=== PATIENT | male | born 1945 | race Caucasian/White ===

== ENCOUNTER → 2017-03-03 | Outpatient (CLI) | payer MEDICARE ==
--- NOTE | 2017-03-03 08:34 | US ---
EXAMINATION TYPE: US duplex aorta DATE OF EXAM: 03/03/2017 COMPARISON: NONE CLINICAL HISTORY: I50.9 chronic heart failure. AAA screening EXAM MEASUREMENTS: Abdominal Aorta: Proximal: 2.3 x 2.3cm Mid: 2.3 x 2.2cm Distal: 2.1 x 2.2cm Right Iliac: 1.2 x 1.3cm Left Iliac: 1.2 x 1.4cm Visualized portions of aorta and Iliacs appear wnl, no AAA seen at this time, portions of proximal an d distal aorta partially obscured by overlying midline bowel gas. IMPRESSION: No evidence of AAA
--- NOTE | 2017-03-03 09:08 | US ---
EXAMINATION TYPE: US prostate transrectal DATE OF EXAM: 03/03/2017 COMPARISON: NONE CLINICAL HISTORY: R97.20 elevated PSA level. Elevated PSA, difficult urination This examination was performed using the transrectal probe. EXAM MEASUREMENTS: Gland Size: 5.9 x 5.3 x 6.4cm Volume: 104.7ml Predicted PSA: 12.6 Actual PSA (if available): 4.54 Enlarged heterogeneous gland with multiple calcifications throughout and multiple cystic areas throug hout central zone with largest measuring 0.8cm. IMPRESSION: Prostate enlargement without suspicious lesion. Predicted PSA = volume x 0.12 ng/ml Calculated Volume = 0.5236 x L x W x H
== END | disposition home or self-care (01) ==
LOC: RADUSMAIN 07:48
PROVIDERS: ATTEND Family Medicine
DX: Z13.6 Encounter for screening for cardiovascular disorders (principal); N40.0 Benign prostatic hyperplasia without lower urinary tract symptoms; I50.9 Heart failure, unspecified
CPT/HCPCS: 76872; 93979

== ENCOUNTER 2019-07-27 08:36 | Emergency (ER) | payer MEDICARE ==
[2019-07-27] MEDS ORDERED: KETOROLAC 30 MG/ML 1 ML VIAL IVP STA (09:15)
[2019-07-27] MEDS ORDERED: ONDANSETRON ODT 8 MG TAB.RAPDIS PO STA (09:15)
[2019-07-27] MEDS ORDERED: SODIUM CHLORIDE 0.9% 2,000 ML IV STA (09:15)
[2019-07-27] MEDS ORDERED: SODIUM CHLORIDE 0.9% 1,000 ML IV STA (09:15)
[2019-07-27] MEDS ORDERED: MORPHINE SULFATE 4 MG/ML SYRINGE IV STA (09:15)
--- NOTE | 2019-07-27 09:19 | ED ---
Abdominal Pain HPI - General Chief Complaint: Abdominal Pain Stated Complaint: poss kidney stones Time Seen by Provider: 07/27/19 08:55 Source: patient, RN notes reviewed, old records reviewed Mode of arrival: ambulatory Limitations: no limitations - History of Present Illness Initial Comments: This patient's a 74-year-old male, and he presents emergency department today with 2 days of right-sided flank pain. Patient reports that he believes he is suffering from kidney stones. Patient states that he's noticed no significant hematuria to his urine. Patient reports that the symptoms started after he came home from the gym. He initially thought he pulled something. He states though he had persistent pain, I does complain of some nausea. Patient reports that he is had a cholecystectomy in the past. Denies any specific fevers or chills. Patient reports he's had some urinary hesitancy. He doesn't history of enlarged prostate disorder but reports that this seems worse than usual. - Related Data Home Medications Medication Instructions Recorded Confirmed HYDROcodone/APAP 7.5-325MG [[place] 1 tab PO Q6HR PRN 12/23/14 11/04/15 7.5-325] Omeprazole [PriLOSEC] 20 mg PO AC-BID PRN 12/23/14 11/04/15 Psyllium Husk 100% [Metamucil 6 gm PO DAILY 12/23/14 11/04/15 Packet] Previous Rx's Medication Instructions Recorded Aspirin 325 mg PO BID #60 tab 08/19/15 Docusate [Colace] 100 mg PO DAILY #30 capsule 08/19/15 HYDROcodone/APAP 7.5-325MG [[place] 1 - 2 each PO Q6HR PRN #60 tab 08/19/15 7.5] traMADol HCl [Ultram] 50 mg PO Q6H PRN #40 tab 08/19/15 Cephalexin [Keflex] 500 mg PO Q6HR #40 cap 11/04/15 Cyclobenzaprine [Flexeril] 10 mg PO TID #12 tab 07/27/19 Ibuprofen 600 mg PO TID #12 tablet 07/27/19 Allergies Allergy/AdvReac Type Severity Reaction Status Date / Time influenza virus vaccine, Allergy Swelling Verified 07/27/19 08:44 specific IN THROAT [influenza virus vacc,specific] lactose Allergy Diarrhea Verified 10/25/19 08:44 Review of Systems ROS Statement: Those systems with pertinent positive or pertinent negative responses have been documented in the HPI. ROS Other: All systems not noted in ROS Statement are negative. Past Medical History Past Medical History: GERD/Reflux, Osteoarthritis (OA) Additional Past Medical History / Comment(s): KIDNEY STONE PASSED. SCALEY SPOT AT RT NONDENOMINATIONAL. NUMBNESS IN LT OUTER FOOT SINCE SURG 12/2014. History of Any Multi-Drug Resistant Organisms: None Reported Past Surgical History: Cholecystectomy, Orthopedic Surgery Additional Past Surgical History / Comment(s): RIGHT AND LEFT KNEE ARTHROSCOPIC- SEVERAL, RHINOPLASTY CATARACT SURGERY, Past Anesthesia/Blood Transfusion Reactions: No Reported Reaction Past Psychological History: No Psychological Hx Reported Smoking Status: Never smoker Past Alcohol Use History: None Reported Past Drug Use History: None Reported - Past Family History Father Additional Family Medical History / Comment(s): PARKINSONS, ULCERS Mother Family Medical History: COPD Additional Family Medical History / Comment(s): EMPHYSEMA General Exam - General Exam Comments Initial Comments: 74-year-old male. Pleasant. Patient appears in no significant distress. Resting comfortably in bed. General: Well appearing, well nourished, in no distress. Oriented x 3, normal mood and affect . Ambulating without difficulty. Skin: Good turgor, no rash, unusual bruising or prominent lesions Hair: Normal texture and distribution. HEENT: Head: Normocephalic, atraumatic, no visible or palpable masses, dep ressions, or scaring. Mouth: Mucous membranes moist, no mucosal lesions. Neck: Supple, without lesions, bruits, or adenopathy, thyroid non-enlarged and non-tender Heart: No cardiomegaly or thrills; regular rate and rhythm, no murmur or gallop Lungs: Clear to auscultation and percussion Abdomen: Bowel sounds normal, no tenderness, organomegaly, masses, or hernia Back: Spine normal without deformity. R cva tenderness Extremities: No amputations or deformities, cyanosis, edema or varicosities, peripheral pulses intact Musculoskeletal: Normal gait and station. No misalignment, asymmetry, cre pitation, defects, tenderness, masses, effusions, decreased range of motion, instability, atrophy or abnormal strength or tone in the head, neck, spine, ribs, pelvis or extremities. Neurologic: CN 2-12 normal. Sensation to pain, touch, and proprioception normal. DTRs normal in upper and lower extremities. No pathologic reflexes. Psychiatric: Oriented X3, intact recent and remote memory, judgment and insight, normal mood and affect. Limitations: no limitations Course Vital Signs 07/27/19 07/27/19 08:41 12:40 Temperature 97.8 F 98.4 F Pulse Rate 71 77 Respiratory 18 16 Rate Blood Pressure 163/103 148/99 O2 Sat by Pulse 97 98 Oximetry Medical Decision Making - Medical Decision Making 74-year-old male comes in today for evaluation for right-sided flank pain for last 2 days. He also complains some urinary urgency, and states he is concerned immediately doing of kidney stones. At this time Patient was given IV fluids labwork obtained. Laboratory was unremarkable. She is to have pain. Patient had a CT scan of his abdomen pelvis without contrast looking for stones or any other, gait doctors and is no evidence of any acute abdominal process noted. Patient will be discharged at this time with follow-up with PCP. . - Lab Data Result diagrams: 07/27/19 08:59 07/27/19 08:59 Lab Results 07/27/19 07/27/19 07/27/19 Range/Units 08:59 08:59 08:59 WBC 4.6 (3.8-10.6) k/uL RBC 5.35 (4.30-5.90) m/uL Hgb 16.1 (13.0-17.5) gm/dL Hct 48.5 (39.0-53.0) % MCV 90.6 (80.0-100.0) fL MCH 30.1 (25.0-35.0) pg MCHC 33.2 (31.0-37.0) g/dL RDW 13.2 (11.5-15.5) % Plt Count 178 (150-450) k/uL Neutrophils % 67 % Lymphocytes % 17 % Monocytes % 8 % Eosinophils % 4 % Basophils % 2 % Neutrophils # 3.1 (1.3-7.7) k/uL Lymphocytes # 0.8 L (1.0-4.8) k/uL Monocytes # 0.4 (0-1.0) k/uL Eosinophils # 0.2 (0-0.7) k/uL Basophils # 0.1 (0-0.2) k/uL PT 10.3 (9.0-12.0) sec INR 1.0 (<1.2) APTT 26.1 (22.0-30.0) sec Sodium 141 (137-145) mmol/L Potassium 4.4 (3.5-5.1) mmol/L Chloride 106 (98-107) mmol/L Carbon Dioxide 26 (22-30) mmol/L Anion Gap 9 mmol/L BUN 19 (9-20) mg/dL Creatinine 1.03 (0.66-1.25) mg/dL Est GFR (CKD-EPI)AfAm 83 (>60 ml/min/1.73 sqM) Est GFR (CKD-EPI)NonAf 72 (>60 ml/min/1.73 sqM) Glucose 92 (74-99) mg/dL Calcium 9.6 (8.4-10.2) mg/dL Total Bilirubin 1.3 (0.2-1.3) mg/dL AST 21 (17-59) U/L ALT 17 L (21-72) U/L Alkaline Phosphatase 69 (38-126) U/L Total Protein 7.3 (6.3-8.2) g/dL Albumin 4.2 (3.5-5.0) g/dL Amylase 55 (30-110) U/L Lipase 76 (23-300) U/L Urine Color Urine Appearance (Clear) Urine pH (5.0-8.0) Ur Specific [place] (1.001-1.035) Urine Protein (Negative) Urine Glucose (UA) (Negative) Urine Ketones (Negative) Urine Blood (Negative) Urine Nitrite (Negative) Urine Bilirubin (Negative) Urine Urobilinogen (<2.0) mg/dL Ur Leukocyte Esterase (Negative) 07/27/19 Range/Units 08:59 WBC (3.8-10.6) k/uL RBC (4.30-5.90) m/uL Hgb (13.0-17.5) gm/dL Hct (39.0-53.0) % MCV (80.0-100.0) fL MCH (25.0-35.0) pg MCHC (31.0-37.0) g/dL RDW (11.5-15.5) % Plt Count (150-450) k/uL Neutrophils % % Lymphocytes % % Monocytes % % Eosinophils % % Basophils % % Neutrophils # (1.3-7.7) k/uL Lymphocytes # (1.0-4.8) k/uL Monocytes # (0-1.0) k/uL Eosinophils # (0-0.7) k/uL Basophils # (0-0.2) k/uL PT (9.0-12.0) sec INR (<1.2) APTT (22.0-30.0) sec Sodium (137-145) mmol/L Potassium (3.5-5.1) mmol/L Chloride (98-107) mmol/L Carbon Dioxide (22-30) mmol/L Anion Gap mmol/L BUN (9-20) mg/dL Creatinine (0.66-1.25) mg/dL Est GFR (CKD-EPI)AfAm (>60 ml/min/1.73 sqM) Est GFR (CKD-EPI)NonAf (>60 ml/min/1.73 sqM) Glucose (74-99) mg/dL Calcium (8.4-10.2) mg/dL Total Bilirubin (0.2-1.3) mg/dL AST (17-59) U/L ALT (21-72) U/L Alkaline Phosphatase (38-126) U/L Total Protein (6.3-8.2) g/dL Albumin (3.5-5.0) g/dL Amylase (30-110) U/L Lipase (23-300) U/L Urine Color Yellow Urine Appearance Clear (Clear) Urine pH 5.5 (5.0-8.0) Ur Specific [place] 1.026 (1.001-1.035) Urine Protein Trace H (Negative) Urine Glucose (UA) Negative (Negative) Urine Ketones Negative (Negative) Urine Blood Negative (Negative) Urine Nitrite Negative (Negative) Urine Bilirubin Negative (Negative) Urine Urobilinogen <2.0 (<2.0) mg/dL Ur Leukocyte Esterase Negative (Negative) - Radiology Data Radiology results: report reviewed CT shows prostate enlargement. No evidence of hydronephrosis or nephrolithiasis. Degenerative changes within lumbar spine. Probable bilateral simple renal cysts. Disposition Clinical Impression: DDD (degenerative disc disease), lumbar, Back pain Disposition: HOME SELF-CARE Condition: Good Instructions (If sedation given, give patient instructions): Low Back Strain (ED) Additional Instructions: Patient advised to take anti-inflammatory medicine muscle actions as prescribed. Follow-up with your primary care physician. Prescriptions: Cyclobenzaprine [Flexeril] 10 mg PO TID #12 tab Ibuprofen 600 mg PO TID #12 tablet Is patient prescribed a controlled substance at d/c from ED?: No Referrals: Chris Galindo MD [Primary Care Provider] - 1-2 days Time of Disposition: 12:08
[2019-07-27] MEDS ORDERED: ONDANSETRON 4 MG/2 ML VIAL IVP STA (09:20)
[2019-07-27 09:36] LABS: Appearance,Urine Clear (Clear); Basophils # (A) 0.1 k/uL (0-0.2); Basophils % (A) 2 %; Bilirubin,Urine Negative (Negative); Blood,Urine Negative (Negative); Color,Urine Yellow; Eosinophils # (A) 0.2 k/uL (0-0.7); Eosinophils % (A) 4 %; Glucose,Urine (UA) Negative (Negative); HCT 48.5 % (39.0-53.0); HGB 16.1 gm/dL (13.0-17.5); Ketones,Urine Negative (Negative); Leukocyte Esterase,Urine Negative (Negative); Lymphocytes # (A) 0.8 k/uL (1.0-4.8); Lymphocytes % (A) 17 %; MCH 30.1 pg (25.0-35.0); MCHC 33.2 g/dL (31.0-37.0); MCV 90.6 fL (80.0-100.0); Monocytes # (A) 0.4 k/uL (0-1.0); Monocytes % (A) 8 %; Neutrophils # (A) 3.1 k/uL (1.3-7.7); Neutrophils % (A) 67 %; Nitrite,Urine Negative (Negative); PH, Urine 5.5 (5.0-8.0); Platelet Count 178 k/uL (150-450); Protein,Urine Trace (Negative); RBC 5.35 m/uL (4.30-5.90); RDW 13.2 % (11.5-15.5); Specific Gravity,Urine 1.026 (1.001-1.035); Urobilinogen,Urine <2.0 mg/dL (<2.0); WBC 4.6 k/uL (3.8-10.6)
[2019-07-27 09:44] LABS: Partial Thromboplastin Time 26.1 sec (22.0-30.0); Prothrombin Time 10.3 sec (9.0-12.0)
[2019-07-27 09:58] LABS: Albumin 4.2 g/dL (3.5-5.0); Calcium 9.6 mg/dL (8.4-10.2); Potassium 4.4 mmol/L (3.5-5.1); Total Bilirubin 1.3 mg/dL (0.2-1.3); Total Protein 7.3 g/dL (6.3-8.2)
--- NOTE | 2019-07-27 10:01 | XR ---
EXAMINATION TYPE: XR KUB DATE OF EXAM: 07/27/2019 9:48 AM CLINICAL HISTORY: Right flank and back pain. History of kidney stones TECHNIQUE: Two Upright KUB images of the abdomen are obtained. COMPARISON: CT 2014. FINDINGS: Scattered gas is seen in non-distended small bowel loops. Gas and fecal material is seen in non-distended colon. . Scattered air-fluid levels are nonspecific upper to mid central abdomen. Chol ecystectomy clips are redemonstrated. Lung bases are clear. Multilevel spurring in the spine is prese nt. No definitive nephrolithiasis. IMPRESSION: Overall nonspecific but felt to be nonobstructive bowel gas pattern. Small bilateral renal calculi in 2014 CT not clearly seen on plain films.
--- NOTE | 2019-07-27 11:19 | CT ---
EXAMINATION TYPE: CT abdomen pelvis wo con DATE OF EXAM: 07/27/2019 COMPARISON: 11/27/2013 HISTORY: Rt lateral abd pain CT DLP: 629.6 mGycm Examination of the solid and hollow viscera is limited given the lack of contrast. FINDINGS: LUNG BASES: No evidence for nodule. No evidence for infiltrate. Right basilar atelectasis and/or pare nchymal scarring. LIVER/GB: The gallbladder is surgically absent. No space-occupying hepatic lesion. PANCREAS: No pancreatic mass identified. No inflammatory process seen. SPLEEN: No evidence for splenomegaly. No intrasplenic lesions seen. ADRENALS: No adrenal nodules identified. No evidence for thickening. KIDNEYS: Hypoattenuating lesions of the kidneys may reflect small cysts. No definitive solid lesions seen. No nephrolithiasis. No hydronephrosis. BOWEL: Appendix has a normal appearance. No evidence of bowel obstruction. No inflammatory process. Lymph nodes: No evidence for adenopathy greater than 1 cm. Abdominal aorta: Atheromatous changes seen. No evidence for aneurysm. Genital organs: Marked prostate gland enlargement. Other: Severe degenerative change lumbar spine. IMPRESSION: 1. Marked prostate gland enlargement. 2. No evidence for hydronephrosis or nephrolithiasis. Probable of bilateral simple renal cysts.
[2019-07-27 12:40] VITALS: BP 148/99; PULSE 77; RESP 16; TEMP 98.4
== END 2019-07-27 12:40 | disposition home or self-care (01) ==
LOC: EC 08:36
DX: M51.36 Other intervertebral disc degeneration, lumbar region (principal); R39.15 Urgency of urination; K21.9 Gastro-esophageal reflux disease without esophagitis; Z91.011 Allergy to milk products; Z88.7 Allergy status to serum and vaccine; Z90.49 Acquired absence of other specified parts of digestive tract
CPT/HCPCS: 36415; 80053; 82150; 83690; 85025; 85610; 85730; 81003; 74018; 74176; 99285; 96374; 96375; 96361 ×3; J2270; J2405

== ENCOUNTER → 2019-10-05 | Outpatient (CLI) | payer MEDICARE ==
--- NOTE | 2019-10-05 23:15 | CT ---
EXAMINATION TYPE: CT knee LT wo con DATE OF EXAM: 10/05/2019 COMPARISON: None HISTORY: Patient complains of left knee numbness. Possible bone spur. CT DLP: 423 mGycm Automated exposure control for dose reduction was used. FINDINGS: Muscular signal is normal. No suspicious soft tissue abnormality is evident. Tibial and femoral components are present. No acute fractures are evident. There is some calcificatio n along the medial distal femur could be related to some calcified tendinosis. Three-D reconstructed images were performed. Beam hardening artifact limits this evaluation however. IMPRESSION: 1. NO OBVIOUS BONE SPURS ARE EVIDENT. 2. THERE MAY BE SOME CALCIFIED TENDINOSIS LONG THE MEDIAL COLLATERAL LIGAMENT PROXIMALLY
== END | disposition home or self-care (01) ==
LOC: RADCTMAIN 13:37
PROVIDERS: ATTEND Orthopaedic Surgery
DX: M25.562 Pain in left knee (principal); Z96.652 Presence of left artificial knee joint

== ENCOUNTER 2019-11-17 09:17 | Emergency (ER) | payer MEDICARE ==
[2019-11-17 09:22] VITALS: RESP 18
--- NOTE | 2019-11-17 09:43 | ED ---
URI HPI - General Chief Complaint: Upper Respiratory Infection Stated Complaint: Cough Time Seen by Provider: 11/17/19 09:25 Source: patient, RN notes reviewed Mode of arrival: ambulatory Limitations: no limitations - History of Present Illness Initial Comments: This a 74-year-old male presents emergency Department with chief complaint of cough, shortness of breath. Patient states she's been sick last week states it initially started with sore throat, nasal congestion. He states he now has a productive cough. Patient denies any fevers the pain was states she's had intermittent fevers recently. Denies any exposures to influenza. Patient denies any current chest pain, headache, dizziness. He has been taking [id number] cough and cold medications which has helped somewhat. Denies any history of COPD or CHF or asthma - Related Data Home Medications Medication Instructions Recorded Confirmed HYDROcodone/APAP 7.5-325MG [[place] 1 tab PO Q6HR PRN 12/23/14 11/04/15 7.5-325] Omeprazole [PriLOSEC] 20 mg PO AC-BID PRN 12/23/14 11/04/15 Psyllium Husk 100% [Metamucil 6 gm PO DAILY 12/23/14 11/04/15 Packet] Previous Rx's Medication Instructions Recorded Aspirin 325 mg PO BID #60 tab 08/19/15 Docusate [Colace] 100 mg PO DAILY #30 capsule 08/19/15 HYDROcodone/APAP 7.5-325MG [[place] 1 - 2 each PO Q6HR PRN #60 tab 08/19/15 7.5] traMADol HCl [Ultram] 50 mg PO Q6H PRN #40 tab 08/19/15 Cephalexin [Keflex] 500 mg PO Q6HR #40 cap 11/04/15 Cyclobenzaprine [Flexeril] 10 mg PO TID #12 tab 07/27/19 Ibuprofen 600 mg PO TID #12 tablet 07/27/19 Azithromycin [Zithromax Z-pack] 0 mg PO DIRECTED #1 pack 11/17/19 Allergies Allergy/AdvReac Type Severity Reaction Status Date / Time influenza virus vaccine, Allergy Swelling Verified 11/17/19 09:22 specific IN THROAT [influenza virus vacc,specific] lactose Allergy Diarrhea Verified 11/17/19 09:22 Review of Systems ROS Statement: Those systems with pertinent positive or pertinent negative responses have been documented in the HPI. ROS Other: All systems not noted in ROS Statement are negative. Past Medical History Past Medical History: GERD/Reflux, Osteoarthritis (OA) Additional Past Medical History / Comment(s): KIDNEY STONE PASSED. SCALEY SPOT AT RT HOLINESS. NUMBNESS IN LT OUTER FOOT SINCE SURG 12/2014. History of Any Multi-Drug Resistant Organisms: None Reported Past Surgical History: Cholecystectomy, Orthopedic Surgery Additional Past Surgical History / Comment(s): RIGHT AND LEFT KNEE ARTHROSCOPIC- SEVERAL, RHINOPLASTY CATARACT SURGERY, Past Anesthesia/Blood Transfusion Reactions: No Reported Reaction Past Psychological History: No Psychological Hx Reported Smoking Status: Never smoker Past Alcohol Use History: None Reported Past Drug Use History: None Reported - Past Family History Father Additional Family Medical History / Comment(s): PARKINSONS, ULCERS Mother Family Medical History: COPD Additional Family Medical History / Comment(s): EMPHYSEMA General Exam Limitations: no limitations General appearance: alert, in no apparent distress Head exam: Present: atraumatic, normocephalic, normal inspection Eye exam: Present: normal appearance, PERRL, EOMI. Absent: scleral icterus, conjunctival injection, periorbital swelling Neck exam: Present: full ROM Respiratory exam: Present: rhonchi (Right greater than left). Absent: normal lung sounds bilaterally, respiratory distress, wheezes, rales, stridor Cardiovascular Exam: Present: regular rate, normal rhythm, normal heart sounds. Absent: systolic murmur, diastolic murmur, rubs, gallop, clicks Neurological exam: Present: alert, oriented X3, CN II-XII intact Skin exam: Present: warm, dry, intact, normal color. Absent: rash Course Vital Signs 11/17/19 09:17 Temperature 98 F Pulse Rate 93 Respiratory 18 Rate Blood Pressure 141/102 O2 Sat by Pulse 96 Oximetry Medical Decision Making - Medical Decision Making Chest x-ray does not show any definite evidence of pneumonia though there may be some early infiltrate in the right lower. Patient be treated with azithromycin at this time he'll follow-up with his primary care physician and return for worsening symptoms. Disposition Clinical Impression: Bronchitis Disposition: HOME SELF-CARE Condition: Stable Instructions (If sedation given, give patient instructions): Upper Respiratory Infection (ED) Additional Instructions: Please return to the Emergency Department if symptoms worsen or any other concerns. Prescriptions: Azithromycin [Zithromax Z-pack] 0 mg PO DIRECTED #1 pack Is patient prescribed a controlled substance at d/c from ED?: No Referrals: Chris Galindo MD [Primary Care Provider] - 1-2 days Time of Disposition: 10:35
--- NOTE | 2019-11-17 10:27 | XR ---
EXAMINATION TYPE: XR chest 2V DATE OF EXAM: 11/17/2019 HISTORY: cough. REFERENCE: Previous study dated 03/31/2013. FINDINGS: Lung volumes are prominent. There is scarring or atelectasis at the left lung base. Lungs o therwise clear. Pleural space are clear. The heart is not enlarged. IMPRESSION: 1. COPD. 2. SCARRING VERSUS ATELECTASIS, LEFT LUNG BASE.
[2019-11-17] MEDS ORDERED: cefTRIAXone 1,000 MG VIAL (IM USE) IM STA (10:35)
[2019-11-17 10:46] VITALS: BP 116/85; PULSE 75; TEMP 98.4
== END 2019-11-17 10:44 | disposition home or self-care (01) ==
LOC: EC 09:17
DX: J40 Bronchitis, not specified as acute or chronic (principal); K21.9 Gastro-esophageal reflux disease without esophagitis; Z88.7 Allergy status to serum and vaccine; Z91.018 Allergy to other foods; Z79.899 Other long term (current) drug therapy; Z82.5 Family history of asthma and other chronic lower respiratory diseases
CPT/HCPCS: 71046; 99284; 96372; J0696

== ENCOUNTER → 2020-12-30 | Outpatient (CLI) | payer MEDICARE ==
--- NOTE | 2020-12-30 16:55 | XR ---
EXAMINATION TYPE: XR lumbar spine 2 or 3V DATE OF EXAM: 12/30/2020 COMPARISON: NONE HISTORY: Numbness TECHNIQUE: 3 views FINDINGS: Lumbar vertebra have normal alignment. There is disc space narrowing at L3-4 and L4-5 with spur formation. There is no compression fracture. The sacroiliac joints are intact. IMPRESSION: Spondylotic changes mainly at L3-4 L4-5. No fracture seen. No change compared to CT scan of the abdomen on 07/27/2019.
== END | disposition home or self-care (01) ==
LOC: RADXRMAIN 15:41
PROVIDERS: ATTEND Internal Medicine Geriatric Medicine
DX: M47.816 Spondylosis without myelopathy or radiculopathy, lumbar region (principal)
CPT/HCPCS: 72100

== ENCOUNTER 2021-05-17 06:16 | Emergency (ER) | payer MEDICARE ==
[2021-05-17 06:23] VITALS: TEMP 97.6
[2021-05-17 06:55] LABS: Appearance,Urine Clear (Clear); Bilirubin,Urine Negative (Negative); Blood,Urine Negative (Negative); Color,Urine Light Yellow; Glucose,Urine (UA) Negative (Negative); Ketones,Urine Negative (Negative); Leukocyte Esterase,Urine Negative (Negative); Nitrite,Urine Negative (Negative); PH, Urine 5.5 (5.0-8.0); Protein,Urine Negative (Negative); Specific Gravity,Urine 1.011 (1.001-1.035); Urobilinogen,Urine <2.0 mg/dL (<2.0)
--- NOTE | 2021-05-17 07:24 | XR ---
EXAMINATION TYPE: XR KUB DATE OF EXAM: 05/17/2021 COMPARISON: CT abdomen pelvis 07/27/2019 HISTORY: 76 years Male. STUDY INDICATION GIVEN: Constipation . TECHNIQUE: 2 views of the abdomen FINDINGS AND IMPRESSION: Large amount of stool seen in the abdomen. No evidence for intestinal obstruction. No evidence for free abdominal air. Cholecystectomy clips noted. Subsegmental atelectasis seen in the lung bases. The heart is normal in size. Aorta appears ectatic. Degenerative changes seen in the spine and bilateral hip joints. Phleboliths are noted in the pelvis.
[2021-05-17] MEDS ORDERED: MAGNESIUM CITRATE 296 ML BOTTLE PO ONE (07:31)
--- NOTE | 2021-05-17 07:32 | ED ---
Male Urogenital HPI - General Chief complaint: Urogenital Stated complaint: unable to urinate Time Seen by Provider: 05/17/21 06:25 Source: patient, family, RN notes reviewed Mode of arrival: ambulatory Limitations: no limitations - History of Present Illness Initial comments: This is a 76-year-old male presents emergency Department with chief complaint unable to urinate. Patient states that he had issues with his prostate in which she's been taking Flomax states she's gradually had worsening symptoms. Is unable to get any urine out last night. Patient states he feels pressure in his lower abdomen. Patient also states is very constipated he states he passed gas and minimal stool this morning. He states he had a straining really hard noticed small amount bleeding from hemorrhoids. Patient offers no other complaints. - Related Data Home Medications Medication Instructions Recorded Confirmed HYDROcodone/APAP 7.5-325MG [[place] 1 tab PO Q6HR PRN 12/23/14 11/04/15 7.5-325] Omeprazole [PriLOSEC] 20 mg PO AC-BID PRN 12/23/14 11/04/15 Psyllium Hus[place] 100% [Metamucil 6 gm PO DAILY 12/23/14 11/04/15 Packet] Previous Rx's Medication Instructions Recorded Aspirin 325 mg PO BID #60 tab 08/19/15 Docusate [Colace] 100 mg PO DAILY #30 capsule 08/19/15 HYDROcodone/APAP 7.5-325MG [[place] 1 - 2 each PO Q6HR PRN #60 tab 08/19/15 7.5] traMADol HCl [Ultram] 50 mg PO Q6H PRN #40 tab 08/19/15 Cephalexin [Keflex] 500 mg PO Q6HR #40 cap 11/04/15 Cyclobenzaprine [Flexeril] 10 mg PO TID #12 tab 07/27/19 Ibuprofen 600 mg PO TID #12 tablet 07/27/19 Azithromycin [Zithromax Z-pack (6 0 mg PO DIRECTED #1 pack 11/17/19 tabs)] Allergies Allergy/AdvReac Type Severity Reaction Status Date / Time influenza virus vaccine, Allergy Swelling Verified 05/17/21 06:23 specific IN THROAT [influenza virus vacc,specific] lactose Allergy Diarrhea Verified 05/17/21 06:23 Review of Systems ROS Statement: Those systems with pertinent positive or pertinent negative responses have been documented in the HPI. ROS Other: All systems not noted in ROS Statement are negative. Past Medical History Past Medical History: GERD/Reflux, Osteoarthritis (OA), Prostate Disorder Additional Past Medical History / Comment(s): KIDNEY STONE PASSED. SCALEY SPOT AT RT [place]. NUMBNESS IN LT OUTER FOOT SINCE SURG 12/2014. History of Any Multi-Drug Resistant Organisms: None Reported Past Surgical History: Cholecystectomy, Orthopedic Surgery Additional Past Surgical History / Comment(s): RIGHT AND LEFT KNEE ARTHROSCOPIC- SEVERAL, RHINOPLASTY CATARACT SURGERY, Past Anesthesia/Blood Transfusion Reactions: No Reported Reaction Past Psychological History: Depression Smoking Status: Former smoker Past Alcohol Use History: Occasional Past Drug Use History: None Reported - Past Family History Father Additional Family Medical History / Comment(s): PARKINSONS, ULCERS Mother Family Medical History: COPD Additional Family Medical History / Comment(s): EMPHYSEMA General Exam Limitations: no limitations General appearance: alert, in no apparent distress Head exam: Present: atraumatic, normocephalic, normal inspection Respiratory exam: Present: normal lung sounds bilaterally. Absent: respiratory distress, wheezes, rales, rhonchi, stridor Cardiovascular Exam: Present: regular rate, normal rhythm, normal heart sounds. Absent: systolic murmur, diastolic murmur, rubs, gallop, clicks GI/Abdominal exam: Present: soft, tenderness (Moderate suprapubic), normal bowel sounds. Absent: distended, guarding, rebound, rigid Back exam: Absent: CVA tenderness (R), CVA tenderness (L) Course Vital Signs 05/17/21 06:18 Temperature 97.6 F Pulse Rate 84 Respiratory 22 Rate Blood Pressure 194/120 O2 Sat by Pulse 97 Oximetry Medical Decision Making - Medical Decision Making X-ray shows moderate amount of constipation was no evidence of obstruction patient had ovary 100 and also urine on bladder scan fully catheter was placed he states he feels greatly improved he has no pain at this time. Patient we discharged with Hollins catheter will follow-up with urology continue [facility]. Urinalysis does not show any signs of infection. - Lab Data Lab Results 05/17/21 Range/Units 06:45 Urine Color Light Yellow Urine Appearance Clear (Clear) Urine pH 5.5 (5.0-8.0) Ur Specific [place] 1.011 (1.001-1.035) Urine Protein Negative (Negative) Urine Glucose (UA) Negative (Negative) Urine Ketones Negative (Negative) Urine Blood Negative (Negative) Urine Nitrite Negative (Negative) Urine Bilirubin Negative (Negative) Urine Urobilinogen <2.0 (<2.0) mg/dL Ur Leukocyte Esterase Negative (Negative) Disposition Clinical Impression: Urinary retention, Constipation Disposition: HOME SELF-CARE Condition: Stable Instructions (If sedation given, give patient instructions): Urinary Retention in Men (ED) Additional Instructions: Please return to the Emergency Department if symptoms worsen or any other concerns. Is patient prescribed a controlled substance at d/c from ED?: No Referrals: Chris Galindo MD [Primary Care Provider] - 1-2 days Braden Hall MD [STAFF PHYSICIAN] - 1-2 days Time of Disposition: 07:31
[2021-05-17 07:33] VITALS: BP 152/99; PULSE 64; RESP 16
== END 2021-05-17 07:45 | disposition home or self-care (01) ==
LOC: EC 06:16
DX: K59.00 Constipation, unspecified (principal); R33.9 Retention of urine, unspecified; K21.9 Gastro-esophageal reflux disease without esophagitis; M19.90 Unspecified osteoarthritis, unspecified site; F32.9 Major depressive disorder, single episode, unspecified; Z79.82 Long term (current) use of aspirin; Z88.7 Allergy status to serum and vaccine; Z87.442 Personal history of urinary calculi; Z90.49 Acquired absence of other specified parts of digestive tract; Z87.891 Personal history of nicotine dependence
CPT/HCPCS: 51702; 51798; 74018; 81003; 99283

== ENCOUNTER 2021-05-21 07:44 | Emergency (ER) | payer MEDICARE ==
[2021-05-21] MEDS ORDERED: SODIUM CHLORIDE 0.9% 1,000 ML IV ONE (08:20)
[2021-05-21] MEDS ORDERED: ACETAMINOPHEN TAB 500 MG TAB PO STA (08:20)
--- NOTE | 2021-05-21 08:29 | ED ---
Male Urogenital HPI - General Source: patient, EMS, RN notes reviewed Mode of arrival: EMS Limitations: no limitations <Jerod Garrison - Last Filed: 05/21/21 11:00> <Mandie Cartwright - Last Filed: 05/22/21 23:03> - General Chief complaint: Urogenital Stated complaint: cath issues Time Seen by Provider: 05/21/21 07:46 - History of Present Illness Initial comments: This is a 76-year-old male presents emergency Department chief complaint of fever. Patient states that this a few days ago for urinary retention. Patient follow-up with urology yesterday in which he had his Hollins catheter removed. He states that at 9 this morning he had shaking chills, body aches. Patient states that he is able to urinate but states it is slightly decreased from before. Patient denies any recent Tylenol Motrin no cough, URI symptoms no nausea vomiting diarrhea constipation no sick contacts. Patient does have his covid 19 vaccination. Patient states she is scheduled to follow-up with urology again today. Patient did have a digital rectal exam yesterday. (Jerod Garrison) - Related Data Home Medications Medication Instructions Recorded Confirmed HYDROcodone/APAP 7.5-325MG [[place] 1 tab PO Q6HR PRN 12/23/14 11/04/15 7.5-325] Omeprazole [PriLOSEC] 20 mg PO AC-BID PRN 12/23/14 11/04/15 Psyllium [place] 100% [Metamucil 6 gm PO DAILY 12/23/14 11/04/15 Packet] Previous Rx's Medication Instructions Recorded Aspirin 325 mg PO BID #60 tab 08/19/15 Docusate [Colace] 100 mg PO DAILY #30 capsule 08/19/15 HYDROcodone/APAP 7.5-325MG [[place] 1 - 2 each PO Q6HR PRN #60 tab 08/19/15 7.5] traMADol HCl [Ultram] 50 mg PO Q6H PRN #40 tab 08/19/15 Cephalexin [Keflex] 500 mg PO Q6HR #40 cap 11/04/15 Cyclobenzaprine [Flexeril] 10 mg PO TID #12 tab 07/27/19 Ibuprofen 600 mg PO TID #12 tablet 07/27/19 Azithromycin [Zithromax Z-pack (6 0 mg PO DIRECTED #1 pack 11/17/19 tabs)] Sulfamethox-Tmp 800-160Mg [Bactrim 1 each PO Q12HR #20 tab 05/21/21 Ds] Allergies Allergy/AdvReac Type Severity Reaction Status Date / Time influenza virus vaccine, Allergy Swelling Verified 05/21/21 07:52 specific IN THROAT [influenza virus vacc,specific] lactose Allergy Diarrhea Verified 05/21/21 07:52 Review of Systems ROS Other: All systems not noted in ROS Statement are negative. <Jerod Garrison - Last Filed: 05/21/21 11:00> ROS Other: All systems not noted in ROS Statement are negative. <Mandie Cartwright - Last Filed: 05/22/21 23:03> ROS Statement: Those systems with pertinent positive or pertinent negative responses have been documented in the HPI. Past Medical History Past Medical History: GERD/Reflux, Osteoarthritis (OA), Prostate Disorder Additional Past Medical History / Comment(s): KIDNEY STONE PASSED. SCALEY SPOT AT RT [employer]. NUMBNESS IN LT OUTER FOOT SINCE SURG 12/2014. History of Any Multi-Drug Resistant Organisms: None Reported Past Surgical History: Cholecystectomy, Orthopedic Surgery Additional Past Surgical History / Comment(s): RIGHT AND LEFT KNEE ARTHROSCOPIC- SEVERAL, RHINOPLASTY CATARACT SURGERY, Past Anesthesia/Blood Transfusion Reactions: No Reported Reaction Past Psychological History: Depression Smoking Status: Former smoker Past Alcohol Use History: Occasional Past Drug Use History: None Reported - Past Family History Father Additional Family Medical History / Comment(s): PARKINSONS, ULCERS Mother Family Medical History: COPD Additional Family Medical History / Comment(s): EMPHYSEMA <Jerod Garrison - Last Filed: 05/21/21 11:00> General Exam Limitations: no limitations General appearance: alert, in no apparent distress Head exam: Present: atraumatic, normocephalic, normal inspection Neck exam: Present: normal inspection, full ROM. Absent: tenderness, meningismus, lymphadenopathy Respiratory exam: Present: normal lung sounds bilaterally. Absent: respiratory distress, wheezes, rales, rhonchi, stridor Cardiovascular Exam: Present: regular rate, normal rhythm, normal heart sounds. Absent: systolic murmur, diastolic murmur, rubs, gallop, clicks GI/Abdominal exam: Present: soft, normal bowel sounds. Absent: distended, tenderness, guarding, rebound, rigid Back exam: Absent: CVA tenderness (R), CVA tenderness (L) Neurological exam: Present: alert Skin exam: Present: warm, dry, intact, normal color. Absent: rash <Jerod Garrison - Last Filed: 05/21/21 11:00> Course Vital Signs 05/21/21 05/21/21 05/21/21 07:47 08:14 10:31 Temperature 102.1 F H 99.9 F H Pulse Rate 94 89 Respiratory 16 16 Rate Blood Pressure 154/101 139/86 123/77 O2 Sat by Pulse 96 96 Oximetry 05/21/21 11:16 Temperature 99.7 F H Pulse Rate 80 Respiratory 20 Rate Blood Pressure 122/86 O2 Sat by Pulse 96 Oximetry Medical Decision Making - Lab Data Result diagrams: 05/21/21 08:33 05/21/21 08:33 <Jerod Garrison - Last Filed: 05/21/21 11:00> - Lab Data Result diagrams: 05/21/21 08:33 05/21/21 08:33 <Mandie Cartwright - Last Filed: 05/22/21 23:03> - Medical Decision Making Patient presented for fever, not feeling well though improved prior arrival patient found to have urinary tract infection was given Rocephin be discharged in stable condition on oral antibiotics return parameters were discussed patient will follow-up with urology. (Jerod Garrison) I was available for consultation in the emergency department. The history and physical exam were done by the midlevel provider. I was consulted for this patients care. I reviewed the case with the midlevel provider and based on their presentation of the patient, I agree with the assessment, medical decision making and plan of care as documented. Chart was dictated using [employer] dictation software. Attempts were made to correct any dictation errors however some typographical errors may persist. Patient was seen during a national state of emergency due to the Covid-19 pandemic. (Mandie Cartwright) - Lab Data Lab Results 05/21/21 05/21/21 05/21/21 Range/Units 08:33 08:33 08:33 WBC 6.2 (3.8-10.6) k/uL RBC 5.42 (4.30-5.90) m/uL Hgb 16.3 (13.0-17.5) gm/dL Hct 49.9 (39.0-53.0) % MCV 92.1 (80.0-100.0) fL MCH 30.1 (25.0-35.0) pg MCHC 32.6 (31.0-37.0) g/dL RDW 14.4 (11.5-15.5) % Plt Count 141 L (150-450) k/uL MPV 7.5 Neutrophils % 94 % Lymphocytes % 3 % Monocytes % 2 % Eosinophils % 1 % Basophils % 1 % Neutrophils # 5.8 (1.3-7.7) k/uL Lymphocytes # 0.2 L (1.0-4.8) k/uL Monocytes # 0.1 (0-1.0) k/uL Eosinophils # 0.1 (0-0.7) k/uL Basophils # 0.0 (0-0.2) k/uL Sodium 141 (137-145) mmol/L Potassium 4.0 (3.5-5.1) mmol/L Chloride 108 H (98-107) mmol/L Carbon Dioxide 25 (22-30) mmol/L Anion Gap 8 mmol/L BUN 30 H (9-20) mg/dL Creatinine 0.90 (0.66-1.25) mg/dL Est GFR (CKD-EPI)AfAm >90 (>60 ml/min/1.73 sqM) Est GFR (CKD-EPI)NonAf 83 (>60 ml/min/1.73 sqM) Glucose 96 (74-99) mg/dL Plasma Lactic Acid Dharmesh 1.5 (0.7-2.0) mmol/L Calcium 9.3 (8.4-10.2) mg/dL Total Bilirubin 1.7 H (0.2-1.3) mg/dL AST 21 (17-59) U/L ALT 13 (4-49) U/L Alkaline Phosphatase 76 (38-126) U/L Total Protein 6.6 (6.3-8.2) g/dL Albumin 3.9 (3.5-5.0) g/dL Urine Color Urine Appearance (Clear) Urine pH (5.0-8.0) Ur Specific [place] (1.001-1.035) Urine Protein (Negative) Urine Glucose (UA) (Negative) Urine Ketones (Negative) Urine Blood (Negative) Urine Nitrite (Negative) Urine Bilirubin (Negative) Urine Urobilinogen (<2.0) mg/dL Ur Leukocyte Esterase (Negative) Urine RBC (0-5) /hpf Urine WBC (0-5) /hpf Ur Squamous Epith Cells (0-4) /hpf Urine Bacteria (None) /hpf Urine Mucus (None) /hpf Coronavirus (PCR) (Not Detectd) 05/21/21 05/21/21 Range/Units 08:40 09:10 WBC (3.8-10.6) k/uL RBC (4.30-5.90) m/uL Hgb (13.0-17.5) gm/dL Hct (39.0-53.0) % MCV (80.0-100.0) fL MCH (25.0-35.0) pg MCHC (31.0-37.0) g/dL RDW (11.5-15.5) % Plt Count (150-450) k/uL MPV Neutrophils % % Lymphocytes % % Monocytes % % Eosinophils % % Basophils % % Neutrophils # (1.3-7.7) k/uL Lymphocytes # (1.0-4.8) k/uL Monocytes # (0-1.0) k/uL Eosinophils # (0-0.7) k/uL Basophils # (0-0.2) k/uL Sodium (137-145) mmol/L Potassium (3.5-5.1) mmol/L Chloride (98-107) mmol/L Carbon Dioxide (22-30) mmol/L Anion Gap mmol/L BUN (9-20) mg/dL Creatinine (0.66-1.25) mg/dL Est GFR (CKD-EPI)AfAm (>60 ml/min/1.73 sqM) Est GFR (CKD-EPI)NonAf (>60 ml/min/1.73 sqM) Glucose (74-99) mg/dL Plasma Lactic Acid Dharmesh (0.7-2.0) mmol/L Calcium (8.4-10.2) mg/dL Total Bilirubin (0.2-1.3) mg/dL AST (17-59) U/L ALT (4-49) U/L Alkaline Phosphatase (38-126) U/L Total Protein (6.3-8.2) g/dL Albumin (3.5-5.0) g/dL Urine Color Yellow Urine Appearance Cloudy (Clear) Urine pH 7.0 (5.0-8.0) Ur Specific [place] 1.018 (1.001-1.035) Urine Protein Negative (Negative) Urine Glucose (UA) Negative (Negative) Urine Ketones Negative (Negative) Urine Blood Small H (Negative) Urine Nitrite Positive (Negative) Urine Bilirubin Negative (Negative) Urine Urobilinogen <2.0 (<2.0) mg/dL Ur Leukocyte Esterase Large H (Negative) Urine RBC 37 H (0-5) /hpf Urine WBC 113 H (0-5) /hpf Ur Squamous Epith Cells <1 (0-4) /hpf Urine Bacteria Rare H (None) /hpf Urine Mucus Rare H (None) /hpf Coronavirus (PCR) Not Detected (Not Detectd) Disposition Is patient prescribed a controlled substance at d/c from ED?: No Time of Disposition: 11:02 <Jerod Garrison - Last Filed: 05/21/21 11:00> <Mandie Cartwright - Last Filed: 05/22/21 23:03> Clinical Impression: Urinary tract infection Disposition: HOME SELF-CARE Condition: Stable Instructions (If sedation given, give patient instructions): Urinary Tract Infection in Men (ED) Additional Instructions: Please return to the Emergency Department if symptoms worsen or any other concerns. Prescriptions: Sulfamethox-Tmp 800-160Mg [Bactrim Ds] 1 each PO Q12HR #20 tab Referrals: Chris Galindo MD [Primary Care Provider] - 1-2 days
[2021-05-21 09:01] LABS: ALT 13 U/L (4-49); AST 21 U/L (17-59); African American GFR (CKD) >90 (>60 ml/min/1.73 sqM); Albumin 3.9 g/dL (3.5-5.0); Alkaline Phosphatase 76 U/L (38-126); Anion Gap 8 mmol/L; Blood Urea Nitrogen 30 mg/dL (9-20); Calcium 9.3 mg/dL (8.4-10.2); Carbon Dioxide 25 mmol/L (22-30); Chloride 108 mmol/L (98-107); Glucose 96 mg/dL (74-99); Non-African American GFR(CKD) 83 (>60 ml/min/1.73 sqM); Sodium 141 mmol/L (137-145); Total Bilirubin 1.7 mg/dL (0.2-1.3); Total Protein 6.6 g/dL (6.3-8.2)
[2021-05-21 09:17] LABS: Basophils % (A) 1 %; Eosinophils # (A) 0.1 k/uL (0-0.7); Eosinophils % (A) 1 %; HCT 49.9 % (39.0-53.0); HGB 16.3 gm/dL (13.0-17.5); Lymphocytes # (A) 0.2 k/uL (1.0-4.8); Lymphocytes % (A) 3 %; MCH 30.1 pg (25.0-35.0); MCHC 32.6 g/dL (31.0-37.0); MCV 92.1 fL (80.0-100.0); Mean Platelet Volume 7.5; Monocytes # (A) 0.1 k/uL (0-1.0); Monocytes % (A) 2 %; Neutrophils # (A) 5.8 k/uL (1.3-7.7); Neutrophils % (A) 94 %; Platelet Count 141 k/uL (150-450); RBC 5.42 m/uL (4.30-5.90); RDW 14.4 % (11.5-15.5); WBC 6.2 k/uL (3.8-10.6)
--- NOTE | 2021-05-21 09:18 | CT ---
EXAMINATION TYPE: CT abdomen pelvis wo con DATE OF EXAM: 05/21/2021 COMPARISON: 07/27/2019 HISTORY: Right sided pain and fever CT DLP: 512.8 mGycm Examination of the solid and hollow viscera is limited given the lack of contrast. FINDINGS: LUNG BASES: No evidence for nodule. No evidence for infiltrate. LIVER/GB: Cholecystectomy clips are in place. No space-occupying hepatic lesion. PANCREAS: No pancreatic mass identified. No inflammatory process seen. SPLEEN: No evidence for splenomegaly. No intrasplenic lesions seen. ADRENALS: No adrenal nodules identified. No evidence for thickening. KIDNEYS: Multiple renal cysts noted bilaterally. No nephrolithiasis. No hydronephrosis. Urinary bladd er wall thickening may reflect cystitis although distention is limited. BOWEL: Nonvisualization of the appendix although no inflammatory process seen within the right lower quadrant. Scattered diverticulosis without diverticulitis. No evidence of bowel obstruction. No infla mmatory process. Lymph nodes: No evidence for adenopathy greater than 1 cm. Abdominal aorta: Atheromatous changes seen. No evidence for aneurysm. Genital organs: Prostate gland enlargement seen. Other: No significant abnormality. IMPRESSION: 1. Correlate for cystitis. 2. Scattered diverticulosis without diverticulitis.
[2021-05-21 09:59] LABS: Appearance,Urine Cloudy (Clear); Bacteria,Urine Rare /hpf; Bilirubin,Urine Negative (Negative); Blood,Urine Small (Negative); Color,Urine Yellow; Glucose,Urine (UA) Negative (Negative); Ketones,Urine Negative (Negative); Leukocyte Esterase,Urine Large (Negative); Mucus,Urine Rare /hpf; Nitrite,Urine Positive (Negative); Protein,Urine Negative (Negative); RBC,Urine 37 /hpf (0-5); Specific Gravity,Urine 1.018 (1.001-1.035); Squamous Epithelial Cell,Urine <1 /hpf (0-4); Urobilinogen,Urine <2.0 mg/dL (<2.0); WBC,Urine 113 /hpf (0-5)
[2021-05-21] MEDS ORDERED: cefTRIAXone IN SWFI 1,000 MG/10 ML SYRINGE IVP STA (11:01)
[2021-05-21 11:18] VITALS: BP 122/86; PULSE 80; RESP 20; TEMP 99.7
== END 2021-05-21 11:23 | disposition home or self-care (01) ==
LOC: EC 07:44
DX: N39.0 Urinary tract infection, site not specified (principal); K21.9 Gastro-esophageal reflux disease without esophagitis; M19.90 Unspecified osteoarthritis, unspecified site; F32.9 Major depressive disorder, single episode, unspecified; Z20.822 Contact with and (suspected) exposure to COVID-19; Z87.891 Personal history of nicotine dependence
CPT/HCPCS: 36415; 80053; 83605; 85025; 81001; 87040; 87086; 87635; 74176; 99284; 96374; 96361; J0696

== ENCOUNTER 2022-12-19 21:18 | Emergency (ER) | payer MEDICARE ==
[2022-12-19 21:31] VITALS: BP 187/113; PULSE 90; RESP 18; TEMP 98.5
--- NOTE | 2022-12-19 22:06 | ED ---
General Adult HPI - General Chief complaint: ENT Stated complaint: Nasal Congestion, Sore Throat Time Seen by Provider: 12/19/22 21:33 Source: patient Mode of arrival: ambulatory Limitations: no limitations - History of Present Illness Initial comments: Patient is a 77-year-old male presenting with chief complaint of throat discomfort and nasal congestion. Patient states the symptoms have been ongoing for the last 3 weeks. He notes that particularly at night he experiences nasal congestion. When he wakes up in the morning his throat is dry and painful. Patient states that he is unable to Brenda his nose when laying down. He has tested negative for Covid. He has been on amoxicillin and steroids which have not improved his symptoms. He denies chest pain, difficulty breathing, fever, chills, ear pain, sinus pain, dysphagia, neck pain or stiffness, palpitations, weakness, vision or hearing changes, headache. - Related Data Home Medications Medication Instructions Recorded Confirmed HYDROcodone/APAP 7.5-325MG [[place] 1 tab PO Q6HR PRN 12/23/14 11/04/15 7.5-325] Omeprazole [PriLOSEC] 20 mg PO AC-BID PRN 12/23/14 11/04/15 Psyllium Husk 100% [Metamucil 6 gm PO DAILY 12/23/14 11/04/15 Packet] Previous Rx's Medication Instructions Recorded Aspirin 325 mg PO BID #60 tab 08/19/15 Docusate [Colace] 100 mg PO DAILY #30 capsule 08/19/15 HYDROcodone/APAP 7.5-325MG [[place] 1 - 2 each PO Q6HR PRN #60 tab 08/19/15 7.5] traMADol HCl [Ultram] 50 mg PO Q6H PRN #40 tab 08/19/15 Cephalexin [Keflex] 500 mg PO Q6HR #40 cap 11/04/15 Cyclobenzaprine [Flexeril] 10 mg PO TID #12 tab 07/27/19 Ibuprofen 600 mg PO TID #12 tablet 07/27/19 Azithromycin [Zithromax Z-pack (6 0 mg PO DIRECTED #1 pack 11/17/19 tabs)] Sulfamethox-Tmp 800-160Mg [Bactrim 1 each PO Q12HR #20 tab 05/21/21 Ds] Allergies Allergy/AdvReac Type Severity Reaction Status Date / Time influenza virus vaccine, Allergy Swelling Verified 05/21/21 07:52 specific IN THROAT [influenza virus vacc,specific] lactose Allergy Diarrhea Verified 05/21/21 07:52 Review of Systems ROS Statement: Those systems with pertinent positive or pertinent negative responses have been documented in the HPI. ROS Other: All systems not noted in ROS Statement are negative. Past Medical History Past Medical History: GERD/Reflux, Prostate Disorder Additional Past Medical History / Comment(s): KIDNEY STONE PASSED. SCALEY SPOT AT RT YAZDANISM. NUMBNESS IN LT OUTER FOOT SINCE SURG 12/2014. History of Any Multi-Drug Resistant Organisms: None Reported Past Surgical History: Cholecystectomy, Joint Replacement, Orthopedic Surgery Additional Past Surgical History / Comment(s): RIGHT AND LEFT KNEE ARTHROSCOPIC- SEVERAL, RHINOPLASTY CATARACT SURGERY,bilateral knee replacement Past Anesthesia/Blood Transfusion Reactions: No Reported Reaction Past Psychological History: Depression Smoking Status: Former smoker Past Alcohol Use History: Rare Past Drug Use History: None Reported - Past Family History Father Additional Family Medical History / Comment(s): PARKINSONS, ULCERS Mother Family Medical History: COPD Additional Family Medical History / Comment(s): EMPHYSEMA General Exam Limitations: no limitations General appearance: alert, in no apparent distress Head exam: Present: atraumatic, normocephalic, normal inspection Eye exam: Present: normal appearance ENT exam: Present: normal exam, normal oropharynx, mucous membranes moist, TM's normal bilaterally Expanded Throat exam: normal inspection Neck exam: Present: normal inspection, full ROM. Absent: tenderness Respiratory exam: Present: normal lung sounds bilaterally. Absent: respiratory distress, wheezes, rales, rhonchi, stridor Cardiovascular Exam: Present: regular rate, normal rhythm, normal heart sounds. Absent: systolic murmur, diastolic murmur, rubs, gallop, clicks Neurological exam: Present: alert, oriented X3, CN II-XII intact Psychiatric exam: Present: normal affect, normal mood Skin exam: Present: warm, dry, intact, normal color. Absent: rash Course Vital Signs 12/19/22 21:25 Temperature 98.5 F Pulse Rate 90 Respiratory 18 Rate Blood Pressure 187/113 O2 Sat by Pulse 95 Oximetry Medical Decision Making - Medical Decision Making Was pt. sent in by a medical professional or institution (, PA, DERMATOLOGY PROCEDURAL PHYSICIAN, urgent care, hospital, or jail...) When possible be specific @ -No Did you speak to anyone other than the patient for history (EMS, parent, family, police, friend...)? What history was obtained from this source @ -No Did you review nursing and triage notes (agree or disagree)? Why? @ -I reviewed and agree with nursing and triage notes Were old charts reviewed (outside hosp., previous admission, EMS record, old EKG, old radiological studies, urgent care reports/EKG's, jail records)? Report findings @ -No old charts were reviewed Differential Diagnosis (chest pain, altered mental status, abdominal pain women, abdominal pain men, vaginal bleeding, weakness, fever, dyspnea, syncope, headache, dizziness, GI bleed, back pain, seizure, CVA, palpatations, mental health, musculoskeletal)? @ -Differential includes sinusitis, pharyngitis, ALLERGIES, this is not an All- inclusive list EKG interpreted by me (3pts min.). @ -As above X-rays interpreted by me (1pt min.). @ -None done CT interpreted by me (1pt min.). @ -None done U/S interpreted by me (1pt. min.). @ -None done What testing was considered but not performed or refused? (CT, X-rays, U/S, labs)? Why? @ -None What meds were considered but not given or refused? Why? @ -None Did you discuss the management of the patient with other professionals (professionals i.e. , PA, DERMATOLOGY PROCEDURAL PHYSICIAN, lab, RT, psych nurse, 7th grade social studies teacher, electrical development engineer, teacher, chief development officer, pillowcase maker)? Give summary @ -No Was smoking cessation discussed for >3mins.? @ -No Was critical care preformed (if so, how long)? @ -No Were there social determinants of health that impacted care today? How? (Homelessness, low income, unemployed, alcoholism, drug addiction, transporta tion, low edu. Level, literacy, decrease access to med. care, residential, rehab)? @ -No Was there de-escalation of care discussed even if they declined (Discuss DNR or withdrawal of care, Hospice)? DNR status @ -No What co-morbidities impacted this encounter? (DM, HTN, Smoking, COPD, CAD, Cancer, CVA, ARF, Chemo, Hep., AIDS, mental health diagnosis, sleep apnea, morbid obesity)? @ -None Was patient admitted / discharged? Hospital course, mention meds given and route, prescriptions, significant lab abnormalities, going to OR and other pertinent info. @ -Patient is a 77-year-old male presenting with chief complaint of nasal congestion and throat irritation that can ongoing for the last 3 weeks. Patient has undergone antibiotic treatment with amoxicillin and treatment by oral steroids. He is using Flonase nasal spray. Physical examination is unremarkable. I informed the patient that I believe he needs to see an ENT, he reports that several years ago he did see Dr. Tadeo. I provided the patient with a referral to ENT for further management of his chronic symptoms. Follow-up with PCP. Report back to ER with any new or worsening symptoms. Discussed return parameters and answered all questions. Patient conveyed verbal understanding and agreed to the plan. I discussed this case in detail with my attending Dr. Tapia Undiagnosed new problem with uncertain prognosis? @ -No Drug Therapy requiring intensive monitoring for toxicity (Heparin, Nitro, Insulin, Cardizem)? @ -No Were any procedures done? @ -No Diagnosis/symptom? @ -Rhinosinusitis Acute, or Chronic, or Acute on Chronic? @ -Acute Uncomplicated (without systemic symptoms) or Complicated (systemic symptoms)? @ -Uncomplicated Side effects of treatment? @ -No Exacerbation, Progression, or Severe Exacerbation? @ -No Poses a threat to life or bodily function? How? (Chest pain, [place], [place], pneumonia, PE, COPD, DKA, ARF, appy, cholecystitis, CVA, Diverticulitis, Homicidal, Suicidal, threat to staff... and all critical care pts) @ -No Disposition Clinical Impression: Sinusitis Disposition: HOME SELF-CARE Condition: Good Instructions (If sedation given, give patient instructions): Rhinosinusitis (ED) Additional Instructions: Follow-up with PCP and ENT. Report back to ER with any new or worsening symptoms. Is patient prescribed a controlled substance at d/c from ED?: No Referrals: Chris Galindo MD [Primary Care Provider] - 1-2 days Lamin Mack MD [STAFF PHYSICIAN] - 1-2 days Time of Disposition: 22:05
== END 2022-12-19 22:20 | disposition home or self-care (01) ==
LOC: EC 21:18
DX: J32.9 Chronic sinusitis, unspecified (principal); K21.9 Gastro-esophageal reflux disease without esophagitis; F32.A Depression, unspecified; Z87.891 Personal history of nicotine dependence; Z79.899 Other long term (current) drug therapy; Z91.011 Allergy to milk products; Z88.7 Allergy status to serum and vaccine; Z20.822 Contact with and (suspected) exposure to COVID-19
CPT/HCPCS: 99283

== ENCOUNTER 2023-01-08 08:27 | Emergency (ER) | payer MEDICARE ==
[2023-01-08 09:42] LABS: Basophils # (A) 0.1 k/uL (0-0.2); Basophils % (A) 1 %; Eosinophils # (A) 0.2 k/uL (0-0.7); Eosinophils % (A) 4 %; HCT 48.3 % (39.0-53.0); Lymphocytes # (A) 0.6 k/uL (1.0-4.8); Lymphocytes % (A) 13 %; MCH 29.2 pg (25.0-35.0); MCHC 33.1 g/dL (31.0-37.0); MCV 88.2 fL (80.0-100.0); Mean Platelet Volume 7.8; Monocytes # (A) 0.3 k/uL (0-1.0); Monocytes % (A) 6 %; Neutrophils # (A) 3.3 k/uL (1.3-7.7); Neutrophils % (A) 74 %; Platelet Count 118 k/uL (150-450); RBC 5.48 m/uL (4.30-5.90); RDW 13.4 % (11.5-15.5); WBC 4.5 k/uL (3.8-10.6)
--- NOTE | 2023-01-08 09:46 | XR ---
EXAMINATION TYPE: XR chest 2V DATE OF EXAM: 01/08/2023 COMPARISON: 11/17/2019 HISTORY: Difficulty breathing TECHNIQUE: Frontal and lateral views of the chest are obtained. FINDINGS: There is no focal air space opacity, pleural effusion, or pneumothorax seen. The cardiac silhouette size is within normal limits. The osseous structures are intact. IMPRESSION: No acute cardiopulmonary process.
[2023-01-08 09:49] LABS: Albumin 3.6 g/dL (3.5-5.0); Calcium 8.7 mg/dL (8.4-10.2); Magnesium 2.2 mg/dL (1.6-2.3); Potassium 4.3 mmol/L (3.5-5.1); Total Bilirubin 1.2 mg/dL (0.2-1.3); Total Protein 6.4 g/dL (6.3-8.2)
[2023-01-08 09:51] LABS: Partial Thromboplastin Time 24.6 sec (22.0-30.0); Prothrombin Time 10.6 sec (9.0-12.0)
--- NOTE | 2023-01-08 10:45 | XR ---
Soft tissues neck. HISTORY: Difficulty swallowing COMPARISON: None TECHNIQUE: AP and lateral views of the soft tissues neck were obtained FINDINGS: The airway is widely patent and there is no foreign body. There is no thickening of the epiglottis or aryepiglottic folds. There is no tonsillar prominence. The retropharyngeal soft tissues are normal. There is moderate degenerative disease at the C5-6 and C6-7 levels where there is mild disc space derrick rowing and moderate anterior spondylosis. IMPRESSION: Degenerative changes in lower cervical spine with no other significant abnormality seen.
--- NOTE | 2023-01-08 10:48 | ED ---
General Adult HPI - General Chief complaint: Shortness of Breath Stated complaint: Sob Time Seen by Provider: 01/08/23 08:30 Source: patient, RN notes reviewed, old records reviewed Mode of arrival: ambulatory Limitations: no limitations - History of Present Illness Initial comments: This is a 77-year-old male who presents emergency department stating that for a month he has been treated for congestion in his nose and postnasal drip he's been on 2 antibiotics and steroids and he is not seeing any improvement. Patient denies any fever chills. Patient states his throat is so dry when he tries to take pills they get stuck. Patient has no problem eating or drinking. Patient states in the morning his throat is much more sore than normal and then it gets better throughout the day. Patient denies any fever chills. Patient states when he sleeps he has always postnasal drip and he wakes up in the middle the night so he is only getting 2 hours of sleep. Patient states he at times feels like he can't get a good breath. Patient denies any chest pain or palpitations. - Related Data Home Medications Medication Instructions Recorded Confirmed HYDROcodone/APAP 7.5-325MG [[place] 1 tab PO Q6HR PRN 12/23/14 11/04/15 7.5-325] Omeprazole [PriLOSEC] 20 mg PO AC-BID PRN 12/23/14 11/04/15 Psyllium [place] 100% [Metamucil 6 gm PO DAILY 12/23/14 11/04/15 Packet] Previous Rx's Medication Instructions Recorded Aspirin 325 mg PO BID #60 tab 08/19/15 Docusate [Colace] 100 mg PO DAILY #30 capsule 08/19/15 HYDROcodone/APAP 7.5-325MG [[place] 1 - 2 each PO Q6HR PRN #60 tab 08/19/15 7.5] traMADol HCl [Ultram] 50 mg PO Q6H PRN #40 tab 08/19/15 Cephalexin [Keflex] 500 mg PO Q6HR #40 cap 11/04/15 Cyclobenzaprine [Flexeril] 10 mg PO TID #12 tab 07/27/19 Ibuprofen 600 mg PO TID #12 tablet 07/27/19 Azithromycin [Zithromax Z-pack (6 0 mg PO DIRECTED #1 pack 11/17/19 tabs)] Sulfamethox-Tmp 800-160Mg [Bactrim 1 each PO Q12HR #20 tab 05/21/21 Ds] Allergies Allergy/AdvReac Type Severity Reaction Status Date / Time influenza virus vaccine, Allergy Swelling Verified 01/08/23 08:32 specific IN THROAT [influenza virus vacc,specific] lactose Allergy Diarrhea Verified 01/08/23 08:32 Review of Systems ROS Statement: Those systems with pertinent positive or pertinent negative responses have been documented in the HPI. ROS Other: All systems not noted in ROS Statement are negative. Past Medical History Past Medical History: GERD/Reflux, Prostate Disorder Additional Past Medical History / Comment(s): KIDNEY STONE PASSED. SCALEY SPOT AT RT LATTER DAY. NUMBNESS IN LT OUTER FOOT SINCE SURG 12/2014. History of Any Multi-Drug Resistant Organisms: None Reported Past Surgical History: Cholecystectomy, Joint Replacement, Orthopedic Surgery Additional Past Surgical History / Comment(s): RIGHT AND LEFT KNEE ARTHROSCOPIC- SEVERAL, RHINOPLASTY CATARACT SURGERY,bilateral knee replacement Past Anesthesia/Blood Transfusion Reactions: No Reported Reaction Past Psychological History: Depression Smoking Status: Former smoker Past Alcohol Use History: Rare Past Drug Use History: None Reported - Past Family History Father Additional Family Medical History / Comment(s): PARKINSONS, ULCERS Mother Family Medical History: COPD Additional Family Medical History / Comment(s): EMPHYSEMA General Exam - General Exam Comments Initial Comments: GENERAL: Patient is well-developed and well-nourished. Patient is nontoxic and well- hydrated and is in mild distress. ENT: Neck is soft and supple. No significant lymphadenopathy is noted. Oropharynx is clear. Moist mucous membranes. Neck has full range of motion without eliciting any pain. EYES: The sclera were anicteric and conjunctiva were pink and moist. Extraocular movements were intact and pupils were equal round and reactive to light. Eyelids were unremarkable. PULMONARY: Unlabored respirations. Good breath sounds bilaterally. No audible rales rhonchi or wheezing was noted. CARDIOVASCULAR: There is a regular rate and rhythm without any murmurs gallops or rubs. ABDOMEN: Soft and nontender with normal bowel sounds. SKIN: Skin is clear with no lesions or rashes and otherwise unremarkable. NEUROLOGIC: Patient is alert and oriented x3. Cranial nerves II through XII are grossly intact. Motor and sensory are also intact. Normal speech, volume and content. Symmetrical smile. MUSCULOSKELETAL: Normal extremities with adequate strength and full range of motion. No lower extremity swelling or edema. No calf tenderness. LYMPHATICS: No significant lymphadenopathy is noted PSYCHIATRIC: Normal psychiatric evaluation. Limitations: no limitations Course Vital Signs 01/08/23 08:30 Temperature 98.4 F Pulse Rate 97 Respiratory 20 Rate Blood Pressure 140/84 O2 Sat by Pulse 99 Oximetry Medical Decision Making - Medical Decision Making EKG was interpreted by myself shows a sinus rhythm at 83 bpm RI interval is 178 QRSs 105 QT interval 370 QTC is 417. Patient's EKG shows no ST segment elevation or depression Was pt. sent in by a medical professional or institution (, PA, GLUE SPREADER, urgent care, hospital, or [facility]...) When possible be specific @ -No Did you speak to anyone other than the patient for history (EMS, parent, family, police, friend...)? What history was obtained from this source @ -No Did you review nursing and triage notes (agree or disagree)? Why? @ -I reviewed and agree with nursing and triage notes Were old charts reviewed (outside hosp., previous admission, EMS record, old EKG, old radiological studies, urgent care reports/EKG's, [facility] records)? Report findings @ -No old charts were reviewed Differential Diagnosis (chest pain, altered mental status, abdominal pain women, abdominal pain men, vaginal bleeding, weakness, fever, dyspnea, syncope, headache, dizziness, GI bleed, back pain, seizure, CVA, palpatations, mental health, musculoskeletal)? @ -Differential Dyspnea: Coronary syndrome, arrhythmia, tamponade, asthma, COPD, pulmonary embolism, pneumonia, pneumothorax, pulmonary effusion, anaphylaxis, diabetic ketoacidosis, flailed chest, pulmonary contusion, diaphragmatic rupture, anemia, neuromuscular, this is not meant to be an all-inclusive list. EKG interpreted by me (3pts min.). @ -As above X-rays interpreted by me (1pt min.). @ -Chest x-ray was interpreted by myself. It shows no acute abnormality. X- ray of the soft tissues of the neck was interpreted by myself shows no acute abnormality. CT interpreted by me (1pt min.). @ -None done U/S interpreted by me (1pt. min.). @ -None done What testing was considered but not performed or refused? (CT, X-rays, U/S, labs)? Why? @ -None What meds were considered but not given or refused? Why? @ -None Did you discuss the management of the patient with other professionals (professionals i.e. , PA, GLUE SPREADER, lab, RT, psych nurse, social group worker, gas appliance repairer, teacher, state patrol officer, caser)? Give summary @ -No Was smoking cessation discussed for >3mins.? @ -No Was critical care preformed (if so, how long)? @ -No Were there social determinants of health that impacted care today? How? (Homelessness, low income, unemployed, alcoholism, drug addiction, transportation, low edu. Level, literacy, decrease access to med. care, prison, rehab)? @ -No Was there de-escalation of care discussed even if they declined (Discuss DNR or withdrawal of care, Hospice)? DNR status @ -No What co-morbidities impacted this encounter? (DM, HTN, Smoking, COPD, CAD, Cancer, CVA, ARF, Chemo, Hep., AIDS, mental health diagnosis, sleep apnea, morbid obesity)? @ -None Was patient admitted / discharged? Hospital course, mention meds given and route, prescriptions, significant lab abnormalities, going to OR and other pertinent info. @ -Patient had chest x-ray and soft tissue neck x-ray in the showed no acute abnormality. Patient had no white count. Patient's d-dimer is normal. Patient's troponin was normal. Patient appeared to be having ALLERGIC rhinitis. Patient states he was taking Flonase up to 3 times a day and he thinks that was making symptoms worse. Undiagnosed new problem with uncertain prognosis? @ -No Drug Therapy requiring intensive monitoring for toxicity (Heparin, Nitro, Insulin, Cardizem)? @ -No Were any procedures done? @ -No Diagnosis/symptom? @ -ALLERGIC rhinitis Acute, or Chronic, or Acute on Chronic? @ -Acute Uncomplicated (without systemic symptoms) or Complicated (systemic symptoms)? @ -Uncomplicated Side effects of treatment? @ -No Exacerbation, Progression, or Severe Exacerbation? @ -No Poses a threat to life or bodily function? How? (Chest pain, [place], [place], pneumonia, PE, COPD, DKA, ARF, appy, cholecystitis, CVA, Diverticulitis, Homicidal, Suicidal, threat to staff... and all critical care pts) @ -No - Lab Data Result diagrams: 01/08/23 09:20 01/08/23 09:20 Lab Results 01/08/23 01/08/23 01/08/23 Range/Units 09:20 09:20 09:20 WBC 4.5 (3.8-10.6) k/uL RBC 5.48 (4.30-5.90) m/uL Hgb 16.0 (13.0-17.5) gm/dL Hct 48.3 (39.0-53.0) % MCV 88.2 (80.0-100.0) fL MCH 29.2 (25.0-35.0) pg MCHC 33.1 (31.0-37.0) g/dL RDW 13.4 (11.5-15.5) % Plt Count 118 L (150-450) k/uL MPV 7.8 Neutrophils % 74 % Lymphocytes % 13 % Monocytes % 6 % Eosinophils % 4 % Basophils % 1 % Neutrophils # 3.3 (1.3-7.7) k/uL Lymphocytes # 0.6 L (1.0-4.8) k/uL Monocytes # 0.3 (0-1.0) k/uL Eosinophils # 0.2 (0-0.7) k/uL Basophils # 0.1 (0-0.2) k/uL PT 10.6 (9.0-12.0) sec INR 1.0 (<1.2) APTT 24.6 (22.0-30.0) sec D-Dimer 0.31 (<0.60) mg/L FEU Sodium 136 L (137-145) mmol/L Potassium 4.3 (3.5-5.1) mmol/L Chloride 104 (98-107) mmol/L Carbon Dioxide 26 (22-30) mmol/L Anion Gap 6 mmol/L BUN 22 H (9-20) mg/dL Creatinine 1.02 (0.66-1.25) mg/dL Est GFR (CKD-EPI)AfAm 82 (>60 ml/min/1.73 sqM) Est GFR (CKD-EPI)NonAf 71 (>60 ml/min/1.73 sqM) Glucose 159 H (74-99) mg/dL Plasma Lactic Acid Dharmesh (0.7-2.0) mmol/L Calcium 8.7 (8.4-10.2) mg/dL Magnesium 2.2 (1.6-2.3) mg/dL Total Bilirubin 1.2 (0.2-1.3) mg/dL AST 23 (17-59) U/L ALT 23 (4-49) U/L Alkaline Phosphatase 60 (38-126) U/L Troponin I (0.000-0.034) ng/mL Total Protein 6.4 (6.3-8.2) g/dL Albumin 3.6 (3.5-5.0) g/dL Influenza Type A (PCR) (Not Detectd) Influenza Type B (PCR) (Not Detectd) RSV (PCR) (Not Detectd) SARS-CoV-2 (PCR) (Not Detectd) 01/08/23 01/08/23 01/08/23 Range/Units 09:20 09:20 09:20 WBC (3.8-10.6) k/uL RBC (4.30-5.90) m/uL Hgb (13.0-17.5) gm/dL Hct (39.0-53.0) % MCV (80.0-100.0) fL MCH (25.0-35.0) pg MCHC (31.0-37.0) g/dL RDW (11.5-15.5) % Plt Count (150-450) k/uL MPV Neutrophils % % Lymphocytes % % Monocytes % % Eosinophils % % Basophils % % Neutrophils # (1.3-7.7) k/uL Lymphocytes # (1.0-4.8) k/uL Monocytes # (0-1.0) k/uL Eosinophils # (0-0.7) k/uL Basophils # (0-0.2) k/uL PT (9.0-12.0) sec INR (<1.2) APTT (22.0-30.0) sec D-Dimer (<0.60) mg/L FEU Sodium (137-145) mmol/L Potassium (3.5-5.1) mmol/L Chloride (98-107) mmol/L Carbon Dioxide (22-30) mmol/L Anion Gap mmol/L BUN (9-20) mg/dL Creatinine (0.66-1.25) mg/dL Est GFR (CKD-EPI)AfAm (>60 ml/min/1.73 sqM) Est GFR (CKD-EPI)NonAf (>60 ml/min/1.73 sqM) Glucose (74-99) mg/dL Plasma Lactic Acid Dharmesh 1.7 (0.7-2.0) mmol/L Calcium (8.4-10.2) mg/dL Magnesium (1.6-2.3) mg/dL Total Bilirubin (0.2-1.3) mg/dL AST (17-59) U/L ALT (4-49) U/L Alkaline Phosphatase (38-126) U/L Troponin I <0.012 (0.000-0.034) ng/mL Total Protein (6.3-8.2) g/dL Albumin (3.5-5.0) g/dL Influenza Type A (PCR) Not Detected (Not Detectd) Influenza Type B (PCR) Not Detected (Not Detectd) RSV (PCR) Not Detected (Not Detectd) SARS-CoV-2 (PCR) Not Detected (Not Detectd) Disposition Clinical Impression: Allergic rhinitis Disposition: HOME SELF-CARE Instructions (If sedation given, give patient instructions): Allergic Rhinitis (ED) Additional Instructions: Patient should stop using the Flonase. Patient should use Afrin for the next 3 days only. Patient can try DayQuil and NyQuil to help decongest and dry up his postnasal drip. Is patient prescribed a controlled substance at d/c from ED?: No Referrals: Chris Galindo MD [Primary Care Provider] - 1-2 days Time of Disposition: 11:03
[2023-01-08 11:05] VITALS: BP 158/107; PULSE 74; RESP 16; TEMP 98.6
== END 2023-01-08 11:17 | disposition home or self-care (01) ==
LOC: EC 08:27
DX: J30.9 Allergic rhinitis, unspecified (principal); K21.9 Gastro-esophageal reflux disease without esophagitis; Z20.822 Contact with and (suspected) exposure to COVID-19; Z87.891 Personal history of nicotine dependence; Z79.899 Other long term (current) drug therapy; Z88.7 Allergy status to serum and vaccine; Z91.011 Allergy to milk products
CPT/HCPCS: 36415; 70360; 71046; 80053; 83605; 83735; 84484; 85025; 85379; 85610; 85730; 87636; 93005; 99285

== ENCOUNTER 2023-01-21 06:32 | Emergency (ER) | payer MEDICARE ==
[2023-01-21 06:51] VITALS: RESP 18; TEMP 98.2
--- NOTE | 2023-01-21 07:25 | ED ---
General Adult HPI - General Chief complaint: ENT Stated complaint: Mental Health, Unable to Swallow Time Seen by Provider: 01/21/23 06:34 Source: patient, EMS, RN notes reviewed, old records reviewed Mode of arrival: EMS - History of Present Illness Initial comments: This is a nontoxic-appearing 78-year-old male who presents to the emergency room with complaints of having trouble swallowing pills and sinusitis with polyps for the past month. Patient states he's not been able to sleep more than a couple of hours at a time with nyquil. He states that he was seen in our emergency room couple of weeks ago for the same problem. He also went to [facility] on January [address] of his sinuses revealing polyps. He did see Dr. Tadeo's nurse practitioner yesterday but she did not address his problems with swallowing. He states that he's been unable to sleep and feeling suicidal because no one will help him -: month(s) (1) Severity scale (1-10): 10 Quality: constant Consistency: constant Improves with: none Associated Symptoms: other (Insomnia) Treatments Prior to Arrival: other (ENT, CT sinuses at [facility] ) - Related Data Home Medications Medication Instructions Recorded Confirmed Cholecalciferol (Vitamin D3) 75 mcg PO DAILY 01/21/23 01/21/23 [Vitamin D3 (3000 Iu)] L.acidoph,Paracasei, B.lactis 1 cap PO DAILY 01/21/23 01/21/23 [Probiotic] Pantoprazole [Protonix] 40 mg PO DAILY 01/21/23 01/21/23 Tamsulosin HCl [Flomax] 0.4 mg PO HS 01/21/23 01/21/23 Vitamin E Acetate [Vitamin E] 134 mg PO DAILY 01/21/23 01/21/23 Previous Rx's Medication Instructions Recorded Docusate [Colace] 100 mg PO DAILY #30 capsule 08/19/15 hydrOXYzine pamoate [Vistaril] 25 mg PO HS PRN 7 Days #7 cap 01/21/23 Allergies Allergy/AdvReac Type Severity Reaction Status Date / Time influenza virus vaccine, Allergy Swelling Verified 01/21/23 09:31 specific IN THROAT [influenza virus vacc,specific] lactose Allergy Diarrhea Verified 01/21/23 09:31 Review of Systems ROS Statement: Those systems with pertinent positive or pertinent negative responses have been documented in the HPI. ROS Other: All systems not noted in ROS Statement are negative. Past Medical History Past Medical History: GERD/Reflux, Prostate Disorder Additional Past Medical History / Comment(s): KIDNEY STONE PASSED. SCALEY SPOT AT RT GNOSTICIST. NUMBNESS IN LT OUTER FOOT SINCE SURG 12/2014. History of Any Multi-Drug Resistant Organisms: None Reported Past Surgical History: Cholecystectomy, Joint Replacement, Orthopedic Surgery Additional Past Surgical History / Comment(s): RIGHT AND LEFT KNEE ARTHROSCOPIC- SEVERAL, RHINOPLASTY CATARACT SURGERY,bilateral knee replacement Past Anesthesia/Blood Transfusion Reactions: No Reported Reaction Past Psychological History: Depression Smoking Status: Former smoker Past Alcohol Use History: Rare Past Drug Use History: None Reported - Past Family History Father Additional Family Medical History / Comment(s): PARKINSONS, ULCERS Mother Family Medical History: COPD Additional Family Medical History / Comment(s): EMPHYSEMA General Exam General appearance: alert, in no apparent distress Head exam: Present: atraumatic Eye exam: Present: normal appearance. Absent: scleral icterus, conjunctival injection, periorbital swelling, periorbital tenderness ENT exam: Present: normal oropharynx, mucous membranes moist Expanded Mouth exam: Present: normal external inspection, tongue normal, tongue elevation. Absent: drooling, trismus, muffled voice Throat exam: negative: tonsillar erythema, tonsillar exudate, R peritonsillar mass, L peritonsillar mass Neck exam: Present: full ROM. Absent: tenderness, meningismus Respiratory exam: Absent: respiratory distress, accessory muscle use Cardiovascular Exam: Present: regular rate GI/Abdominal exam: Present: soft Neurological exam: Present: alert, oriented X3, normal gait Psychiatric exam: Present: normal affect, normal mood, suicidal ideation Skin exam: Present: warm, dry, normal color. Absent: cyanosis, diaphoretic, petechiae, pallor Course Vital Signs 01/21/23 01/21/23 06:44 11:54 Temperature 98.2 F 98.2 F Pulse Rate 80 67 Respiratory 18 18 Rate Blood Pressure 127/85 161/102 O2 Sat by Pulse 95 99 Oximetry Medical Decision Making - Medical Decision Making Patient presents with frustration stating that he feels he is having difficulty swallowing for the past month and not getting any answers. He did see Dr. Tadeo's nurse practitioner yesterday and states she didn't do anything about the difficulty swallowing. He is now feeling suicidal and has not been able to sleep. Patient was seen in the emergency room on January 08 for similar complaints. At that time he had chest x-ray and soft tissue neck x-ray showed no acute abnormality. Labs showed no evidence of a white count and d-dimer was normal. Troponin was normal. Patient was diagnosed with ALLERGIC rhinitis directed to follow up with his primary care doctor. Recommended to use Afrin for the next 3 days only tried DayQuil and NyQuil for the decongestant. Follow-up with Dr. Galindo his PCP. Patient is tolerating his own secretions. States he's having difficulty swallowing pills but is able to swallow soft foods and liquids. Patient was given Ativan and able to rest in the emergency room. Today CT soft tissue neck ordered. I see no evidence of mass or obstruction. Radiologist interpretation shows a patent airway. Visualized portion of the proximal esophagus is unremarkable. No abnormal neck adenopathy. Slight asymmetry to the left piriform sinus without obvious mass favors asymmetry or secretions. Neoplasm at this level not entirely excluded. Correlate with outside CT and PET scan to determine further workup is needed. Attention to right submandibular region as detailed above. I explained to patient the importance of following up with ENT advising them of the CT results. Patient denies any suicidal thoughts at this time states he is just frustrated with not getting the care he wants and needs. States that he is feeling much better and agreeable to being discharged home. I did speak with [facility] nurse who spoke with the patient and consulted Dr. Rene. They did recommend Vistaril 25 mg every at bedtime to help patient sleep at night. Patient states he is agreeable to following up with ENT for continuation of care. Patient discharged home with his ambulatory. Vital signs stable. Case discussed with Dr. Berg. Was pt. sent in by a medical professional or institution (, PA, [employer], urgent care, hospital, or penitentiary...) When possible be specific @ -No Did you speak to anyone other than the patient for history (EMS, parent, family, police, friend...)? What history was obtained from this source @ -No Did you review nursing and triage notes (agree or disagree)? Why? @ -I reviewed and agree with nursing and triage notes Were old charts reviewed (outside hosp., previous admission, EMS record, old EKG, old radiological studies, urgent care reports/EKG's, penitentiary records)? Report findings @ -Yes previous ER visits, labs and x-rays Differential Diagnosis (chest pain, altered mental status, abdominal pain women, abdominal pain men, vaginal bleeding, weakness, fever, dyspnea, syncope, headache, dizziness, GI bleed, back pain, seizure, CVA, palpatations, mental health, musculoskeletal)? @ -Peritonsillar abscess, strep pharyngitis, esophageal stricture, foreign body, mass EKG interpreted by me (3pts min.). @ -n/a X-rays interpreted by me (1pt min.). @ -None done CT interpreted by me (1pt min.). @ -Yes as above U/S interpreted by me (1pt. min.). @ -None done What testing was considered but not performed or refused? (CT, X-rays, U/S, labs)? Why? @ -None What meds were considered but not given or refused? Why? @ -None Did you discuss the management of the patient with other professionals (professionals i.e. , PA, [employer], lab, RT, psych nurse, perinatal social worker, computer technician, teacher, personnel training officer, case aide)? Give summary @ -EPS nurse Cheryl as above Was smoking cessation discussed for >3mins.? @ -No Was critical care preformed (if so, how long)? @ -No Were there social determinants of health that impacted care today? How? (Homelessness, low income, unemployed, alcoholism, drug addiction, transportation, low edu. Level, literacy, decrease access to med. care, nursing home, rehab)? @ -No Was there de-escalation of care discussed even if they declined (Discuss DNR or withdrawal of care, Hospice)? DNR status @ -No What co-morbidities impacted this encounter? (DM, HTN, Smoking, COPD, CAD, Cancer, CVA, ARF, Chemo, Hep., AIDS, mental health diagnosis, sleep apnea, morbid obesity)? @ -None Was patient admitted / discharged? Hospital course, mention meds given and route, prescriptions, significant lab abnormalities, going to OR and other pertinent info. @ -disharged Undiagnosed new problem with uncertain prognosis? @ -No Drug Therapy requiring intensive monitoring for toxicity (Heparin, Nitro, Insulin, Cardizem)? @ -No Were any procedures done? @ -No Diagnosis/symptom? @ -Throat pain, insomnia Acute, or Chronic, or Acute on Chronic? @ -Acute Uncomplicated (without systemic symptoms) or Complicated (systemic symptoms)? @ -Uncomplicated Side effects of treatment? @ -No Exacerbation, Progression, or Severe Exacerbation? @ -No Poses a threat to life or bodily function? How? (Chest pain, [place], [place], pneumonia, PE, COPD, DKA, ARF, appy, cholecystitis, CVA, Diverticulitis, Homicidal, Suicidal, threat to staff... and all critical care pts) @ -No - Lab Data Lab Results 01/21/23 Range/Units 07:39 Urine Opiates Screen Not Detected (NotDetected) Ur Oxycodone Screen Not Detected (NotDetected) Urine Methadone Screen Not Detected (NotDetected) Ur Propoxyphene Screen Not Detected (NotDetected) Ur Barbiturates Screen Not Detected (NotDetected) U Tricyclic Antidepress Not Detected (NotDetected) Ur Phencyclidine Scrn Not Detected (NotDetected) Ur Amphetamines Screen Not Detected (NotDetected) U Methamphetamines Scrn Not Detected (NotDetected) U Benzodiazepines Scrn Not Detected (NotDetected) Urine Cocaine Screen Not Detected (NotDetected) U Marijuana (THC) Screen Not Detected (NotDetected) Disposition Clinical Impression: Insomnia, Throat pain in adult Disposition: HOME SELF-CARE Condition: Good Instructions (If sedation given, give patient instructions): Insomnia (ED) Additional Instructions: Your CT today shows slight asymmetry to the left piriform sinus. I recommend that you follow up with ENT doctor next week. Take the Vistaril as prescribed at bedtime for sleep. Return to the emergency room with any new or concerning symptoms. Prescriptions: hydrOXYzine pamoate [Vistaril] 25 mg PO HS PRN 7 Days #7 cap PRN Reason: Insomnia Is patient prescribed a controlled substance at d/c from ED?: No Referrals: Chris Galindo MD [Primary Care Provider] - 1-2 days Lamin Mack MD [STAFF PHYSICIAN] - 1-2 days Time of Disposition: 11:34
[2023-01-21] MEDS ORDERED: LORazepam 2 MG/ML INJ IV STA (07:26)
[2023-01-21] MEDS ORDERED: SODIUM CHLORIDE 0.9% 500 ML 500 ML IV STA (07:27)
[2023-01-21 07:56] LABS: Amphetamine Screen,Urine Not Detected (NotDetected); Barbiturate Screen,Urine Not Detected (NotDetected); Benzodiazepines Screen,Urine Not Detected (NotDetected); Cocaine Screen,Urine Not Detected (NotDetected); Methadone Screen, Urine Not Detected (NotDetected); Opiate Screen,Urine Not Detected (NotDetected); Oxycodone Screen, Urine Not Detected (NotDetected); Phencyclidine Screen,Urine Not Detected (NotDetected); Tricyclic Antidepressant,Urine Not Detected (NotDetected); Urn Cannabinoid Scrn Not Detected (NotDetected)
--- NOTE | 2023-01-21 09:07 | CT ---
EXAMINATION TYPE: CT soft tissue neck w con DATE OF EXAM: 01/21/2023 HISTORY: hx of squamous cell carcinoma of larynx. Dysphasia. Stricture. COMPARISON: NONE CT DLP: 588.80 mGycm. Automated Exposure Control for Dose Reduction was Utilized. TECHNIQUE: CT scan of the neck is performed with IV Contrast, patient injected with 100 mL of Isovue 300, axial images are obtained, coronal and sagittal reformatted images are reviewed. FINDINGS: Airway: Mild emphysematous change in visualized lungs. Airway appears patent slight asymmetric fullne ss of the left piriform sinus is nonspecific finding image 38 for reference. Parotid/submandibular glands: No gross abnormality seen. Carotid/Vascular Structures: Mild calcified plaque bilateral carotid bulb level. No significant steno sis. Vertebral arteries are patent to basilar junction. Left vertebral artery is larger or dominant. Osseous Structures: Mild to moderate disc space narrowing C3-C4 along with C5-C6 and C6-C7 levels . M ild to moderate spurring C5-C6 and C6-C7 levels is seen. Other: Small foci of air right submandibular region the region of external draining vein likely attem pted IV access site, correlate clinically. No greater than 1 cm neck adenopathy clearly identified. Small mucous retention cysts and/or polyps in the bilateral maxillary sinuses healed posterior left s phenoid sinus are seen. IMPRESSION: 1. Patent airway. Visualized portion of proximal esophagus is unremarkable. No abnormal neck adenopat hy. Slight asymmetry to the left piriform sinus without obvious mass favors asymmetry or secretions. Neoplasm at this level not entirely excluded. Correlate with old outside neck CT and/or PET/CT to det ermine need for further workup with repeat PET/CT. 2. Attention to right submandibular region as detailed above.
[2023-01-21 11:56] VITALS: BP 161/102; PULSE 67
== END 2023-01-21 11:54 | disposition home or self-care (01) ==
LOC: EC 06:32
DX: G47.00 Insomnia, unspecified (principal); R07.0 Pain in throat; K21.9 Gastro-esophageal reflux disease without esophagitis; F32.A Depression, unspecified; Z87.891 Personal history of nicotine dependence; Z79.899 Other long term (current) drug therapy; Z88.7 Allergy status to serum and vaccine; Z91.011 Allergy to milk products
CPT/HCPCS: 82075; 80306; 70491; 99285; 96374; 96361 ×4; J2060; Q9967

== ENCOUNTER 2023-02-16 11:17 | Day surgery (SDC) | payer MEDICARE ==
[~2023-02-16 11:17] MED LIST: LACTATED RINGERS 1,000 ML IV SCH; LIDOCAINE 1% (10MG/ML) FOR IV START INTRADERMA PRN
[2023-02-16] MEDS ORDERED: hydrALAZINE HCL 20 MG/ML 1 ML VIAL IVP ONE (12:21)
[2023-02-16 12:26] VITALS: RESP 16; TEMP 98.3
[2023-02-16] MEDS ORDERED: PROPOFOL 10 MG/ML 20 ML VIAL IV ONE (13:03)
--- NOTE | 2023-02-16 13:24 | P.PCN ---
Date of Procedure: 02/16/23 Procedure(s) Performed: BRIEF HISTORY: Patient is a 77-year-old, pleasant, white male scheduled for an upper endoscopy as a part of evaluation of severe. The last 2 months duration. He does complain of chronic hoarseness and intermittent dysphagia to pills. He reports no odynophagia. He was started on Protonix 40 mg daily with no help. He scheduled for an upper endoscopy to evaluate for. PROCEDURE PERFORMED: Esophagogastroduodenoscopy with biopsy. PREOPERATIVE DIAGNOSIS: Chronic source of intermittent dysphagia to solids and pills. IV sedation per anesthesia. PROCEDURE: After informed consent was obtained, the patient was brought into the endoscopy unit. IV sedation was administered by Anesthesia under continuous monitoring. Initially the Olympus GIF-140 video endoscope was inserted into the mouth. Esophagus intubated without any difficulty. It was gradually advanced into the stomach and duodenum and carefully examined. The bulb and the second part of the duodenum appeared normal. The scope at this time was withdrawn to the stomach, adequately insufflated with air, and upon careful examination, mucosa of the antrum, body, cardia and the fundus appeared normal. The scope was then withdrawn into the esophagus. Small hiatal hernia noted. The GE junction was located at 39 cm from the incisors. Just proximal to the GE junction there was a 5 mm abnormal appearing area with some erythema and erosions and biopsies were done from this area. The rest of the esophagus appeared normal. The patient tolerated the procedure well. IMPRESSION: 1. Mild distal esophagitis. 2. Small hiatal hernia RECOMMENDATIONS: The findings of this examination were discussed with the patien t as well as his family. He was advised to follow with the biopsy results. Continue with Protonix 40 mg twice daily and follow antireflux measures.
[2023-02-16 13:44] VITALS: BP 142/89; PULSE 71
== END 2023-02-16 14:09 | disposition home or self-care (01) ==
LOC: ORWHC2ENDO 11:17
PROVIDERS: ATTEND Internal Medicine Gastroenterology
DX: K21.00 Gastro-esophageal reflux disease with esophagitis, without bleeding (principal); K44.9 Diaphragmatic hernia without obstruction or gangrene; F41.9 Anxiety disorder, unspecified; N40.0 Benign prostatic hyperplasia without lower urinary tract symptoms; Z79.899 Other long term (current) drug therapy; Z88.7 Allergy status to serum and vaccine; Z91.011 Allergy to milk products
CPT/HCPCS: 88305; 43239; J0360; J2704

== ENCOUNTER → 2023-04-04 | Outpatient (CLI) | payer MEDICARE ==
[2023-04-04 09:42] LABS: African American GFR (CKD) 78 (>60 ml/min/1.73 sqM); Blood Urea Nitrogen 26 mg/dL (9-20); Non-African American GFR(CKD) 67 (>60 ml/min/1.73 sqM)
--- NOTE | 2023-04-04 10:37 | CT ---
EXAMINATION TYPE: CT urogram wo/w con DATE OF EXAM: 04/04/2023 COMPARISON: 05/21/2021 HISTORY: hematuria CT DLP: 3033 mGycm CONTRAST: Performed and with IV Contrast, patient injected with 100 mL of Isovue 300. CT Urography was performed with unenhanced followed by enhanced images of the kidneys, ureters and ur inary bladder. Delayed images were obtained. 3d reconstruction was perfromed at a separate work sta tion. FINDINGS: KIDNEYS/BLADDER: No hydronephrosis. No nephrolithiasis. Simple renal cysts are noted bilaterally wi th the largest cyst mid to upper pole right kidney measuring 6.6 cm. The largest simple cyst lower po le left kidney measures 3.3 cm. No solid renal masses identified. Urinary bladder grossly unremarkabl e. LUNG BASES-: No visible nodule. No infiltrate. LIVER/GB: The gallbladder is surgically absent. No space occupying hepatic lesion. Biliary tree is of normal caliber. PANCREAS: No inflammation. No distinct mass. SPLEEN: No splenic enlargement. No lesion seen. ADRENALS: No nodule. No thickening. BOWEL: Normal appendix. Normal bowel caliber. No inflammation. GENITAL ORGANS: The prostate gland is enlarged at 7.3 x 6.4 cm. LYMPH NODES: No greater than 1cm abdominal or pelvic lymph nodes are appreciated. AORTA: No significant abnormality. OSSEOUS STRUCTURES: No significant abnormality is seen. OTHER: No significant additional abnormality is seen. IMPRESSION: 1. Simple renal cysts. 2. Prostate gland enlargement.
== END | disposition home or self-care (01) ==
LOC: RADCTMAIN 08:43
PROVIDERS: ATTEND Urology
DX: N28.1 Cyst of kidney, acquired (principal); N40.0 Benign prostatic hyperplasia without lower urinary tract symptoms; R31.0 Gross hematuria
CPT/HCPCS: 82565; 84520; 74178; 36415; 74400; Q9967

== ENCOUNTER → 2024-07-27 | Outpatient (CLI) | payer MEDICARE ==
--- NOTE | 2024-07-27 14:25 | US ---
EXAMINATION TYPE: US arterial LE single level DATE OF EXAM: 07/27/2024 2:19 PM CLINICAL INDICATION: Male, 79 years old with history of I73.9 PVD; PVD History of: Smoker: Previous Hypertension: Yes Diabetic: No Hyperlipidemia: Yes TIA/CVA: No Previous Vascular Surgery: No CAD: No MN: No Vascular Ulcers: No Claudication: No Gangrene: No Doppler Waveforms: Right: Multiphasic Left: Multiphasic Right Brachial Pressure: 140 Left Brachial Pressure: 144 Ankle-Brachial Indices: Right: 1.1 Left: 1.2 (Vessel hardening > 1.4; Normal 0.9 - 1.4, Moderate 0.7 - 0.9, Severe 0.5-0.7) IMPRESSION: Normal ankle brachial indices bilaterally. [facility], , 07/27/2024 2:22 PM
== END | disposition home or self-care (01) ==
LOC: RADUSWWP 13:31
PROVIDERS: ATTEND Internal Medicine Geriatric Medicine
CPT/HCPCS: 93922